=== PATIENT | female | born 1945 | race Caucasian/White ===

== ENCOUNTER → 2024-05-19 14:34 | Outpatient (REF) | payer MEDICARE, SELFPAY ==
[2024-05-19 16:28] LABS: Vitamin D, 25-OH*** 27.9 ng/mL (30-80)
== END ==
LOC: REG 14:34
PROVIDERS: ATTENDING PHYSICIAN Nurse Practitioner Adult Health
DX: Z00.00 Encounter for general adult medical examination without abnormal findings (principal); E55.9 Vitamin D deficiency, unspecified
CPT/HCPCS: 36415; 82306

== ENCOUNTER → 2024-05-30 14:04 | Outpatient (REF) | payer MEDICARE, SELFPAY | LOC: RAD 14:04 | PROVIDERS: ATTENDING PHYSICIAN Nurse Practitioner Adult Health | DX: M25.551 Pain in right hip (principal); M25.552 Pain in left hip | CPT/HCPCS: 73523 ==

== ENCOUNTER → 2024-06-06 13:46 | Outpatient (REF) | payer MEDICARE, SELFPAY | LOC: RCS 13:46 | PROVIDERS: ATTENDING PHYSICIAN Internal Medicine Cardiovascular Disease; FAMILY PHYSICIAN Nurse Practitioner Adult Health | DX: I34.0 Nonrheumatic mitral (valve) insufficiency (principal) | CPT/HCPCS: 93306 ==

== ENCOUNTER → 2025-02-19 13:56 | Outpatient (REF) | payer MEDICARE, SELFPAY | LOC: RAD 13:56 | PROVIDERS: ATTENDING PHYSICIAN Internal Medicine Gastroenterology; FAMILY PHYSICIAN Internal Medicine | DX: R19.8 Other specified symptoms and signs involving the digestive system and abdomen (principal) | CPT/HCPCS: 74018 ==

== ENCOUNTER → 2025-03-02 14:36 | Outpatient (REF) | payer MEDICARE, SELFPAY ==
[2025-03-02 18:08] LABS: Vitamin B12 188 pg/ml (239-931)
== END ==
LOC: REG 14:36
PROVIDERS: ATTENDING PHYSICIAN Nurse Practitioner Adult Health; FAMILY PHYSICIAN Internal Medicine
DX: D51.0 Vitamin B12 deficiency anemia due to intrinsic factor deficiency (principal); D51.9 Vitamin B12 deficiency anemia, unspecified
CPT/HCPCS: 36415; 82607; 86340

== ENCOUNTER → 2025-04-21 09:51 | Outpatient (REF) | payer MEDICARE, SELFPAY | LOC: RAD 09:51 | PROVIDERS: ATTENDING PHYSICIAN Internal Medicine Gastroenterology; FAMILY PHYSICIAN Nurse Practitioner Adult Health | DX: K22.4 Dyskinesia of esophagus (principal) | CPT/HCPCS: 74221 ==

== ENCOUNTER → 2025-10-07 13:43 | Outpatient (REF) | payer MEDICARE, SELFPAY | LOC: HWWDC 13:43 | PROVIDERS: ATTENDING PHYSICIAN Nurse Practitioner Adult Health | DX: Z12.31 Encounter for screening mammogram for malignant neoplasm of breast (principal) | CPT/HCPCS: 77063; 77067 ==